=== PATIENT | male | born 1985 | race Caucasian/White ===

== ENCOUNTER 2025-03-28 11:50 | Emergency (ER) | payer OTHER, BC ==
[2025-03-28 12:06] LABS: BASOPHILS ABSOLUTE AUTO 0.02 K/uL (0.00-0.20); BASOPHILS PERCENT AUTO 0.3 % (0.0-2.0); EOSINOPHILS ABSOLUTE AUTO 0.16 K/uL (0.00-0.50); EOSINOPHILS PERCENT AUTO 2.5 % (0.0-5.0); IMMATURE GRAN ABSOLUTE AUTO 0.01 10^3/uL (0.00-0.04); IMMATURE GRAN PERCENT AUTO 0.2 % (0.0-0.4); LYMPHOCYTES ABSOLUTE AUTO 1.35 K/uL (0.50-3.50); LYMPHOCYTES PERCENT AUTO 21.2 % (10.0-50.0); MONOCYTES ABSOLUTE AUTO 0.70 K/uL (0.00-1.00); MONOCYTES PERCENT AUTO 11.0 % (2.0-14.0); NEUTROPHILS ABSOLUTE AUTO 4.12 K/uL (1.40-7.00); NEUTROPHILS PERCENT AUTO 64.8 % (45.0-80.0); PLATELET COUNT,PLT 275 K/uL (150-350); RED BLOOD CELL COUNT 5.37 M/uL (4.33-5.41); RED CELL DISTRIBUTION WIDTH 11.6 % (11.2-14.1); WHITE BLOOD CELL COUNT,WBC 6.4 K/uL (4.0-10.2)
[2025-03-28] MEDS: Alum Hydrox/Mag Hydrox/Simeth 30 ML, Lidocaine 2% 15 ML PO ONE (12:07)
[2025-03-28 12:29] LABS: ALANINE AMINOTRANSFERASE,ALT 49.0 U/L (12-78); ASPARTATE AMNIOTRANSFERASE,AST 24.0 U/L (15-37); BILIRUBIN TOTAL 0.4 mg/dL (0.2-1.0); BLOOD UREA NITROGEN,BUN 18.0 mg/dL (7-18); CARBON DIOXIDE,CO2 28.6 mmol/L (21.0-32.0); CHLORIDE,CL 105.0 mmol/L (98-107); CREATININE 0.97 mg/dL (0.51-1.17); EST CRCL DRUG DOSING (CG) 101.23 mL/min; ESTIMATED GFR 101.0 mL/min (>=60); GLUCOSE RANDOM 97.0 mg/dL (70-99); POTASSIUM,K 4.3 mmol/L (3.5-5.1); PROTEIN TOTAL,TP 7.8 g/dL (6.4-8.2); SODIUM,NA 141.0 mmol/L (136-145)
[2025-03-28 12:31] LABS: LACTIC ACID 0.7 mmol/L (0.4-2.0)
[2025-03-28] MEDS: Sodium Chloride 0.9% 10 ML Syringe FLUSH PRN (13:25)
== END 2025-03-28 13:36 | disposition home or self-care (01) ==
LOC: LL.ED 11:50
DX: R07.89 Other chest pain (principal); I10 Essential (primary) hypertension; E66.9 Obesity, unspecified; Z88.8 Allergy status to other drugs, medicaments and biological substances; Z79.899 Other long term (current) drug therapy; Z68.41 Body mass index [BMI] 40.0-44.9, adult
CPT/HCPCS: 36415; 71045; 80053; 83605; 83735; 84484; 85025; 85379; 93005; 96374; 99285; A9270; J2470; J3490